=== PATIENT | male | born 1935 | race Caucasian/White ===

== ENCOUNTER → 2016-08-29 | Outpatient (CLI) | payer MEDICARE ==
[2016-08-29 09:18] LABS: ALBUMIN 4.3 g/dL (3.4-5.0); TOTAL PROTEIN 7.2 g/dL (6.4-8.5)
== END ==
LOC: LAB 08:29
PROVIDERS: ATTEND Internal Medicine Cardiovascular Disease
DX: I25.10 Atherosclerotic heart disease of native coronary artery without angina pectoris (principal); I25.5 Ischemic cardiomyopathy; I35.1 Nonrheumatic aortic (valve) insufficiency; I34.0 Nonrheumatic mitral (valve) insufficiency; E78.00 Pure hypercholesterolemia, unspecified; I25.2 Old myocardial infarction; E03.9 Hypothyroidism, unspecified
CPT/HCPCS: 36415; 80061; 80076

== ENCOUNTER 2016-11-22 09:00 | Outpatient (RCR) | payer MEDICARE ==
--- NOTE | 2016-10-25 13:23 | PT/OT/ST INITIAL EVALUATION ---
Department of Health and Human Services Form Approved Health Care Financing Administration OMB No. [id number] PLAN OF CARE/ASSESSMENT FOR OUTPATIENT REHABILITATION (Complete for Initial Claims Only) 1. PATIENT'S NAME Kishore Mattson 2. ACC # [id number] 3. [facility] [id number] 4. PROVIDER NO. [id number] 5. TYPE: PT 6. PRIOR HOSPITALIZATION None 7. PRIMARY DX Weakness 8. SECONDARY DX Decreased balance and unsteadiness 9. ONSET DATE January 2016 10. REFERRAL DATE Self-referral 11. SOC. DATE 10/23/2016 12. TIME OF EVAL 10:00 a.m. 12. REFERRING PHYSICIAN Self-referral, but primary care physician is Dr. Ronaldo Lamas 13. CHARGES/UNITS Eval, Therex and therapeutic activity 14. G CODES NA 15. PRIOR LEVEL OF FUNCTION; PERTINENT HISTORY (Prior therapy results, reason for referral.) S: Reason for referral: The patient was a self-referral to physical therapy for general strengthening, balance and gait. Description/mechanism of injury: The patient notes that he feels he is having muscle weakness in his legs and has had a bad fall in the last year. The patient notes that he has had a steady decline in lower extremity strength for approximately 3 years. The patient does do some exercises, but does not feel like he is doing enough. The patient notes that he had tripped and fallen in January 2016 and hit the front of his head. The patient also reports difficulty getting up from the floor and bending over to get things up from the floor. He states the back of his legs feel very tight. The patient does not ambulate with any type of assistive device. Pain level: Current pain rating is 0/10. 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 HI in 2013, knee surgery in 1971, shoulder surgery in 1994. Current medications: See attached sheet. Personal health rating: The patient rates his overall health as fair. Activity level: States activity level is moderate. Patient's Goal: The patient's goal is to be able to get up from a chair more easily and to walk more steadily. 16. INITIAL ASSESSMENT/SAFETY PRECAUTIONS/MEDICAL COMPLICATIONS (Level of function at start of care. Be specific, use objective measures, list problems.) O: APPEARANCE AND OBSERVATION: The patient is a tall, slender 81-year-old male. In standing he demonstrates forward head posture and moderate kyphosis. He does demonstrate a scoliotic curve with his right shoulder being slightly higher convexity to the right thoracic and left lumbar region. Right hip slightly higher. RANGE OF MOTION/FLEXIBILITY: Range of motion at upper extremities and lower extremities were normal limits. STRENGTH: Upper extremity strength was 5/5 manual muscle test bilaterally. Lower extremity strength right hip flexion and abduction was 4+/5 manual muscle test. Left were 5/5 manual muscle test. Knee extension right 4+/5 manual muscle test, left 4+/5 manual muscle test. Knee flexion right 4-/5 manual muscle test, left 4+/5 manual muscle test. Ankle dorsiflexion were 5/5 bilaterally. FUNCTIONAL ACTIVITIES: The patient did demonstrate some difficulty stepping over objects, as well as transferring from sit to stand from chair without arms. Performed Tinetti Balance Assessment with the patient and he scored a 24/28, which puts him at a low risk for falls. The patient's Lower Extremity Functional Index self score was 47/80. OUTCOME ASSESSMENT: The patient does have some lower extremity weakness and mild unsteadiness with transfers and gait. 17. 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 SHORT TERM GOALS: 1. The patient to be compliant with a home exercise program in 2 weeks. 2. The patient to be able to go from sitting to standing from a chair without arms without using his hands in 4 weeks. 3. The patient to demonstrate a 2-point improvement in Tinetti balance assessment tool in 4 weeks. 4. The patient to demonstrate half a muscle grade improvement in lower extremity strength in 4 weeks. 5. The patient to report that he is able to perform normal daily activities and work in his yard without difficulty or limitation in 6 weeks. P: The patient will be seen 2 times a week over the next 6 weeks. Plan on progressing the patient with range of motion, flexibility, balance, stabilization, and light strengthening activities as tolerated. 18. FREQUENCY 2 times per week 19. DURATION 6 weeks 20. FUNCTIONAL LEVEL (End of claim period) 21. PHYSICIAN SIGNATURE ? ON FILE OR ENTER HERE: 22. DATE: I certify the need for these services furnished under this plan of care and if for partial hospitalization. 23. CERTIFICATION FROM THROUGH FORM [id number]
[~2016-11-22 09:00] MED LIST: ASPI325T4 PO; ATOR40TA59 PO; CARV3.12T PO; CHOL400C8 PO; CHRO1000 PO; GLUC100016 PO; MAGN100T4 PO; MULT1CAP27 PO; THYR30TA2 GT; THYR32.57 PO; UBIQ100C PO; ZINC100T2 PO; [UNRECOGNIZED DRUG - CODE] PO
== END 2016-12-10 12:02 | disposition home or self-care (01) ==
LOC: PT 09:00
PROVIDERS: ATTEND Family Medicine
DX: R53.1 Weakness (principal); R26.89 Other abnormalities of gait and mobility
CPT/HCPCS: 97110; 97112; 97161; 97530; G8978; G8979